=== PATIENT | female | born 1995 | race Caucasian/White ===

== ENCOUNTER → 2020-07-16 | Outpatient (CLI) | payer SELFPAY | LOC: M LABSMTC 12:01 | PROVIDERS: ATTEND Pediatrics | DX: Z20.828 Contact with and (suspected) exposure to other viral communicable diseases (principal) ==

== ENCOUNTER → 2021-04-22 | Outpatient (CLI) | payer OTHER, SELFPAY ==
--- NOTE | 2021-04-22 13:24 | REP ---
INDICATION: PELVIC PAIN, DYSPAREUNIA. COMPARISON: None. TECHNIQUE: Transabdominal and transvaginal scanning were performed. FINDINGS: Uterine dimensions are normal at 7.6 x 4.5 x 4.8 cm. Endometrial echo is 0.6 cm thick and centrally placed. No free fluid is seen in the cul-de-sac. Visualized bladder blake are smooth. The right ovary has dimensions of 1.6 x 1.0 x 1.6 cm. It's Doppler flow is normal with a resistive index of 0.67. The left ovary is not seen either transabdominally or transvaginally. There is bowel gas shadowing in the left adnexal region. No left adnexal cyst or mass is observed.. IMPRESSION: Normal pelvic sonography. Left ovary not directly visualized. <Electronically signed by Gabriele Jackson > 04/22/21 [id number]
== END ==
LOC: M RAD 12:42
PROVIDERS: ATTEND Nurse Practitioner Family
DX: R10.2 Pelvic and perineal pain (principal); N94.10 Unspecified dyspareunia